=== PATIENT | male | born 1990 | race Caucasian/White ===

== ENCOUNTER 2016-11-07 19:46 | Emergency (ER) | payer SELFPAY ==
[~2016-11-07] VITALS: Ht 167.6 cm; Wt 61.2 kg
[2016-11-07 19:49] VITALS: BP 157/83
--- NOTE | 2016-11-07 19:59 | Emergency Room Report ---
History of Present Illness Time Seen by 1956 Presenting Problem in Triage Pt arrived:Walked Presenting Problem:PT STATES BEING SICK FOR TWO DAYS. STATES BEING UNDER ALOT OF STRESS. STATES VOMITING AND DIARRHEA FOR TWO DAYS. NOT ABLE TO EAT TODAY. STATES BODY ACHES. STATES LEFT ABDOMINAL PAIN. STATES PAIN EASES SOME AFTER HE HAS A BOWEL MOVEMENT Onset of symptoms date/time:/ or onset unknown for:MEDICAL HX UNKNOWN Treatment Prior to Arrival: STATES TAKING [place] AT [address] Provided by:SELF Sepsis Risk Assessment: Temp: 98.4 B/P: 157/83 MAP: 107 Pulse: 110 Resp: 20 Recent fever? N Clinical Suspician of Infection? N Mental Status: 1 - Regular (Normal Baseline) Sepsis Risk:Possible Sepsis Risk Have you (or family members/close friends) recently traveled outside the [place]? N If Yes, where/when: Have you had exposure to infectious disease within the past month? N TB? Other? Specify: ALLERGIES Coded Allergies: No Known Allergies (11/07/16) Home Medications Reported Medications No Known Home Medications History Medical History General CAD? No Angina: No AL: No Hypertension? No Hyperlipidemia? No CHF? No DVT? No PE? No COPD? No Asthma? No Anemia? No GERD? No Gastric ulcers? No GI Bleed? No Hernia? No Thyroid Problems? No Hypothyroidism? No CVA? No Seizures? No Diabetes? No Renal Insuffiency? No End Stage Renal Disease? No UTI? No Stones? No GB Disease: No Nephritic Syndrome? No Asplenia? No Hepatitis? No Sickle Cell Disease? No Arthritis? No Migraines? No Cataracts? No Glaucoma? No MRSA? No HIV? No TB? No Anxiety? No Depression? No Cancer? No Immunization Hx DT/Tetanus 1-4 Years Ago Surgical Hx Previous Surgery?N Social History Smoking Hx Smoker: Current Every Day Smoker Tobacco: Yes Type Cigarettes Alcohol Alcohol: No Drugs none Physical Exam Vital Signs Vital Signs Date Time Temp Pulse Resp B/P Pulse O2 O2 Flow FiO2 Ox Delivery Rate 11/07 1948 98.4 110 20 157/83 98 Departure Departure Condition STABLE Prescriptions Current Visit Scripts No Known Home Medications
--- NOTE | 2016-11-07 19:59 | Emergency Room Report ---
History of Present Illness Time Seen by 1956 Presenting Problem in Triage Pt arrived:Walked Presenting Problem:PT STATES BEING SICK FOR TWO DAYS. STATES BEING UNDER ALOT OF STRESS. STATES VOMITING AND DIARRHEA FOR TWO DAYS. NOT ABLE TO EAT TODAY. STATES BODY ACHES. STATES LEFT ABDOMINAL PAIN. STATES PAIN EASES SOME AFTER HE HAS A BOWEL MOVEMENT Onset of symptoms date/time:/ or onset unknown for:MEDICAL HX UNKNOWN Treatment Prior to Arrival: STATES TAKING [place] AT [address] [employer] [employer] Provided by:SELF Sepsis Risk Assessment: Temp: 98.4 B/P: 157/83 MAP: 107 Pulse: 110 Resp: 20 Recent fever? N Clinical Suspician of Infection? N Mental Status: 1 - Regular (Normal Baseline) Sepsis Risk:Possible Sepsis Risk Have you (or family members/close friends) recently traveled outside the [place]? N If Yes, where/when: Have you had exposure to infectious disease within the past month? N TB? Other? Specify: ALLERGIES Coded Allergies: No Known Allergies (11/07/16) Home Medications Reported Medications No Known Home Medications History Medical History General CAD? No Angina: No [place]: No Hypertension? No Hyperlipidemia? No CHF? No DVT? No PE? No COPD? No Asthma? No Anemia? No GERD? No Gastric ulcers? No GI Bleed? No Hernia? No Thyroid Problems? No Hypothyroidism? No CVA? No Seizures? No Diabetes? No Renal Insuffiency? No End Stage Renal Disease? No UTI? No Stones? No GB Disease: No Nephritic Syndrome? No Asplenia? No Hepatitis? No Sickle Cell Disease? No Arthritis? No Migraines? No Cataracts? No Glaucoma? No MRSA? No HIV? No TB? No Anxiety? No Depression? No Cancer? No Immunization Hx DT/Tetanus 1-4 Years Ago Surgical Hx Previous Surgery?N Social History Smoking Hx Smoker: Current Every Day Smoker Tobacco: Yes Type Cigarettes Alcohol Alcohol: No Drugs none Physical Exam Vital Signs Vital Signs Date Time Temp Pulse Resp B/P Pulse O2 O2 Flow FiO2 Ox Delivery Rate 11/07 1948 98.4 110 20 157/83 98 Departure Departure Condition STABLE Prescriptions Current Visit Scripts No Known Home Medications
== END 2016-11-07 20:10 | disposition left against medical advice (07) ==
LOC: ER 19:46
DX: Z53.29 Procedure and treatment not carried out because of patient's decision for other reasons (principal)